=== PATIENT | male | born 1955 | race Caucasian/White ===

== ENCOUNTER 2018-08-24 13:55 | Day surgery (SDC) | payer BC ==
[2018-08-24] VITALS (10 sets, daily range): BP systolic 109–134; BP diastolic 64–79
[2018-08-24] MEDS ORDERED: normal saline 1000ml 1,000 ML IV SCH (14:15)
[2018-08-24] MEDS ORDERED: CARV-50 PO (14:18)
[2018-08-24] MEDS ORDERED: midazolam 2 mg/2 ml injection ONE (14:34)
[2018-08-24] MEDS ORDERED: LIDOcaine 1% (10mg/ml)w/preservative injection 20ml MDV ONE (14:34)
[2018-08-24] MEDS ORDERED: fentaNYL/PF 50MCG/1 ML 2ML syringe ONE (14:34)
[2018-08-24] MEDS ORDERED: iohexol 350 MG/ML 50ML vial IV ONE (14:34)
[2018-08-24] MEDS ORDERED: iohexol 350MG/ML 100ml bottle IV ONE (14:34)
[2018-08-24 14:40] LABS: BASOPHILS % (AUTO) 0.5 % (0-1); EOSINOPHILS # (AUTO) 0.1 X10'3 (0-0.9); EOSINOPHILS % (AUTO) 2.1 % (0-6); HEMATOCRIT 47.3 % (42.0-52.0); HEMOGLOBIN 15.9 g/dl (14.0-17.9); LYMPHOCYTES # (AUTO) 1.9 X10'3 (1.1-4.8); MEAN CORPUSCULAR HEMOGLOBIN 30.7 PG (27.0-31.0); MEAN CORPUSCULAR HGB CONC 33.7 % (33.0-36.5); MEAN CORPUSCULAR VOLUME 91.1 FL (78-98); MEAN PLATELET VOLUME 8.1 FL (7.4-10.4); MONOCYTES # (AUTO) 0.5 X10'3 (0-0.9); MONOCYTES % (AUTO) 8.9 % (2-12); NEUTROPHILS # (AUTO) 2.7 X10'3 (1.8-7.7); NEUTROPHILS % (AUTO) 52.5 % (42-75); PLATELET COUNT 252 X10'3 (140-440); RED BLOOD COUNT 5.19 X10'6 (4.70-6.10); RED CELL DISTRIBUTION WIDTH 12.7 % (11.5-14.5); WHITE BLOOD COUNT 5.2 X10'3 (4.5-11.0)
[2018-08-24] MEDS ORDERED: diphenhydrAMINE 25mg capsule PO ONE (14:40)
[2018-08-24 14:53] LABS: PROTHROMBIN TIME 10.4 SECONDS (9.0-12.0)
[2018-08-24 14:55] LABS: ALBUMIN 4.1 G/DL (3.4-5.0); ANION GAP 9 (8-16); BLOOD UREA NITROGEN 9 MG/DL (7-18); BUN/CREATININE RATIO 9.6 (5.4-32.0); CALCIUM 8.9 MG/DL (8.5-10.1); CHLORIDE 105 MMOL/L (99-107); CREATININE 0.94 MG/DL (0.60-1.10); GLUCOSE 80 MG/DL (70-104); MAGNESIUM 1.9 MG/DL (1.5-2.4); POTASSIUM 3.8 MMOL/L (3.5-5.1); SODIUM 142 MMOL/L (135-145); TOTAL CARBON DIOXIDE 28.3 MMOL/L (24-32); eGFR 81 ML/MIN
[2018-08-24] MEDS ORDERED: sod bicarbonate 150mEq in D5W 1,150 ML IV ONE (15:55)
[2018-08-24 17:12] LABS: ALBUMIN 3.3 G/DL (3.4-5.0); ANION GAP 4 (8-16); BLOOD UREA NITROGEN 10 MG/DL (7-18); BUN/CREATININE RATIO 11.4 (5.4-32.0); CALCIUM 8.3 MG/DL (8.5-10.1); CHLORIDE 106 MMOL/L (99-107); CHOL/HDL RATIO 2.3 (0.00-4.99); CHOLESTEROL 131 MG/DL (0-200); CREATININE 0.88 MG/DL (0.60-1.10); GLUCOSE 103 MG/DL (70-104); HDL CHOLESTEROL 57 MG/DL (35-60); LDL CHOLESTEROL 72 MG/DL (50-100); POTASSIUM 3.7 MMOL/L (3.5-5.1); SODIUM 141 MMOL/L (135-145); TOTAL CARBON DIOXIDE 30.9 MMOL/L (24-32); TRIGLYCERIDES 38 MG/DL (20-135); eGFR 87 ML/MIN
[2018-08-24] MEDS ORDERED: carVEDilol 12.5mg tablet PO SCH (20:00)
== END 2018-08-24 19:00 | disposition home or self-care (01) ==
LOC: SSTAY O 13:55 → PCU 3S 16:33 → SSTAY O 19:00
PROVIDERS: ATTEND Internal Medicine Cardiovascular Disease
DX: I25.10 Atherosclerotic heart disease of native coronary artery without angina pectoris (principal); I44.2 Atrioventricular block, complete; Z95.0 Presence of cardiac pacemaker; Z96.642 Presence of left artificial hip joint; Z98.890 Other specified postprocedural states
CPT/HCPCS: 36415; 80048; 80061; 83735; 85025; 85610; 93005; 93458; A6257; C1760; C1769; C1894; J1644; J2001; J2250; J3010; J7030; Q9967; 99152; A4620

== ENCOUNTER 2018-10-12 07:53 | Day surgery (SDC) | payer BC ==
[~2018-10-12] VITALS: Ht 188 cm; Wt 99.8 kg
[2018-10-12] VITALS (9 sets, daily range): BP systolic 104–123; BP diastolic 55–77
[~2018-10-12 07:53] MED LIST: CARV-50 PO
[2018-10-12] MEDS: sod bicarbonate 150mEq in D5W 1,150 ML IV ONE (08:15)
[2018-10-12] MEDS ORDERED: LOSA25TA96 PO (08:23)
[2018-10-12] MEDS ORDERED: SILD50TA PO (08:23)
[2018-10-12] MEDS ORDERED: MULT-955 PO (08:23)
[2018-10-12] MEDS ORDERED: fentaNYL/PF 50MCG/1 ML 2ML syringe ONE (08:50)
[2018-10-12] MEDS ORDERED: lidocaine 1%/epinephrine 1:100,000 injection 50ml vial ONE (08:51)
[2018-10-12] MEDS ORDERED: vancomycin 1,000mg inj ONE (08:51)
[2018-10-12] MEDS ORDERED: midazolam 2 mg/2 ml injection ONE ×3 (08:51→10:07)
[2018-10-12] MEDS ORDERED: iohexol 350MG/ML 100ml bottle IV ONE (08:51)
[2018-10-12] MEDS ORDERED: cefazolin/dext.iso 2gm/50ml 50 ML IV ONE (08:55)
[2018-10-12 08:59] LABS: BASOPHILS % (AUTO) 0.4 % (0-1); EOSINOPHILS # (AUTO) 0.1 X10'3 (0-0.9); EOSINOPHILS % (AUTO) 2.8 % (0-6); HEMATOCRIT 42.3 % (42.0-52.0); HEMOGLOBIN 14.2 g/dl (14.0-17.9); LYMPHOCYTES # (AUTO) 1.4 X10'3 (1.1-4.8); LYMPHOCYTES % (AUTO) 35.5 % (21-51); MEAN CORPUSCULAR HEMOGLOBIN 30.6 PG (27.0-31.0); MEAN CORPUSCULAR HGB CONC 33.7 % (33.0-36.5); MEAN CORPUSCULAR VOLUME 90.9 FL (78-98); MONOCYTES # (AUTO) 0.4 X10'3 (0-0.9); MONOCYTES % (AUTO) 9.7 % (2-12); NEUTROPHILS % (AUTO) 51.6 % (42-75); PLATELET COUNT 257 X10'3 (140-440); RED BLOOD COUNT 4.65 X10'6 (4.70-6.10); RED CELL DISTRIBUTION WIDTH 13.4 % (11.5-14.5); WHITE BLOOD COUNT 3.8 X10'3 (4.5-11.0)
[2018-10-12] MEDS: diphenhydrAMINE 25mg capsule PO PRN (09:01)
[2018-10-12] MEDS: normal saline 1000ml 1,000 ML IV SCH (09:01)
[2018-10-12 09:12] LABS: ALBUMIN 3.3 G/DL (3.4-5.0); ANION GAP 6 (8-16); BLOOD UREA NITROGEN 10 MG/DL (7-18); BUN/CREATININE RATIO 10.2 (5.4-32.0); CALCIUM 8.8 MG/DL (8.5-10.1); CHLORIDE 107 MMOL/L (99-107); CREATININE 0.98 MG/DL (0.60-1.10); GLUCOSE 99 MG/DL (70-104); POTASSIUM 4.5 MMOL/L (3.5-5.1); SODIUM 142 MMOL/L (135-145); TOTAL CARBON DIOXIDE 29.1 MMOL/L (24-32); eGFR 77 ML/MIN
[2018-10-12 09:19] LABS: INR 1.1 INR; PROTHROMBIN TIME 10.7 SECONDS (9.0-12.0)
== END 2018-10-12 13:20 | disposition home or self-care (01) ==
LOC: SSTAY O 07:53
PROVIDERS: ATTEND Internal Medicine Cardiovascular Disease
DX: I44.2 Atrioventricular block, complete (principal); I42.8 Other cardiomyopathies; I49.01 Ventricular fibrillation; Z95.0 Presence of cardiac pacemaker; Z96.642 Presence of left artificial hip joint; Z91.018 Allergy to other foods; Z72.89 Other problems related to lifestyle; Z98.890 Other specified postprocedural states; Z79.899 Other long term (current) drug therapy; Z82.49 Family history of ischemic heart disease and other diseases of the circulatory system; Z83.3 Family history of diabetes mellitus; Z83.6 Family history of other diseases of the respiratory system
CPT/HCPCS: 33225; 33233; 33235; 33249; 36415; 71046; 80048; 83735; 85025; 85610; 93005; 93641; 99152; 99153; C1777; C1882; C1887; C1900; J0690; J2250; J3010; J3370; J3490; J7030; Q0163; Q9967; 33224; 33264; A4565; A4620; C1769; C1894

== ENCOUNTER 2022-10-21 06:42 | Day surgery (SDC) | payer MEDICARE, OTHER ==
[~2022-10-21] VITALS: Ht 188 cm; Wt 104.6 kg
[2022-10-21] VITALS (8 sets, daily range): BP systolic 105–136; BP diastolic 71–88
[~2022-10-21 06:42] MED LIST changes: +LOSA25TA96 PO; +MULT-955 PO; +SILD50TA PO
[2022-10-21] MEDS ORDERED: vancomycin 1,500 MG in NS 300ml IV soln IV ONE (07:15)
[2022-10-21] MEDS ORDERED: ceFAZolin inj. 2,000 MG in dextrose 5%-water 100 ML IV ONE (07:15)
[2022-10-21 07:34] LABS: BASOPHILS % (AUTO) 0.9 % (0-1); EOSINOPHILS # (AUTO) 0.2 X10'3 (0-0.9); EOSINOPHILS % (AUTO) 5.1 % (0-6); HEMATOCRIT 45.6 % (42.0-52.0); HEMOGLOBIN 15.2 g/dl (14.0-17.9); LYMPHOCYTES # (AUTO) 1.5 X10'3 (1.1-4.8); LYMPHOCYTES % (AUTO) 34.4 % (21-51); MEAN CORPUSCULAR HEMOGLOBIN 30.6 PG (27.0-31.0); MEAN CORPUSCULAR HGB CONC 33.3 g/dL (33.0-36.5); MEAN CORPUSCULAR VOLUME 91.8 FL (78-98); MEAN PLATELET VOLUME 7.3 FL (7.4-10.4); MONOCYTES # (AUTO) 0.5 X10'3 (0-0.9); MONOCYTES % (AUTO) 10.9 % (2-12); NEUTROPHILS # (AUTO) 2.1 X10'3 (1.8-7.7); NEUTROPHILS % (AUTO) 48.7 % (42-75); PLATELET COUNT 273 X10'3 (140-440); RED BLOOD COUNT 4.96 X10'6 (4.70-6.10); RED CELL DISTRIBUTION WIDTH 13.7 % (11.5-14.5); WHITE BLOOD COUNT 4.2 X10'3 (4.5-11.0)
[2022-10-21] MEDS ORDERED: CARV25TA2 PO (07:41)
[2022-10-21] MEDS ORDERED: PANT40TA54 PO (07:41)
[2022-10-21] MEDS ORDERED: midazolam 1 mg/ML 2ml injection ONE ×3 (08:15→09:56)
[2022-10-21] MEDS ORDERED: fentaNYL/PF 50MCG/1 ML 2ML syringe ONE ×2 (08:15→09:57)
[2022-10-21] MEDS ORDERED: vancomycin 1,000mg inj ONE (08:15)
[2022-10-21] MEDS ORDERED: iohexol 300mg/ml 100ml inj. ONE (08:54)
[2022-10-21] MEDS ORDERED: proCHLORperazine 10 MG/2 ml inj ONE (09:41)
[2022-10-21 09:57] LABS: ALBUMIN 3.6 G/DL (3.4-5.0); ANION GAP 11 (8-16); BLOOD UREA NITROGEN 10 MG/DL (7-18); BUN/CREATININE RATIO 9.4 (5.4-32.0); CALCIUM 8.9 MG/DL (8.5-10.1); CHLORIDE 106 MMOL/L (99-107); CREATININE 1.06 MG/DL (0.60-1.10); GLUCOSE 97 MG/DL (70-104); POTASSIUM 3.9 MMOL/L (3.5-5.1); SODIUM 141 MMOL/L (135-145); TOTAL CARBON DIOXIDE 24.5 MMOL/L (24-32); eGFR 70 ML/MIN
[2022-10-21] MEDS ORDERED: LIDOCAINE 2% (20mg/ml) w/EPINEPHRINE 1:200,000-PF 10 ML inj. SQ ONE (11:20)
[2022-10-21] MEDS ORDERED: LIDOCAINE 2%/EPI 1:100,000 inj. Multi-dose 20 ML VIAL IJ ONE (11:25)
[2022-10-21] MEDS ORDERED: HYDROcodone/acetaminophen 10/325mg tab PO PRN (12:10)
[2022-10-21] MEDS ORDERED: HYDROcodone/acetaminophen 5mg/325mg tablet PO PRN (12:10)
[2022-10-21] MEDS ORDERED: LORazepam 1 MG tablet PO PRN (12:10)
== END 2022-10-21 13:30 | disposition home or self-care (01) ==
LOC: SSTAY O 06:42
PROVIDERS: ATTEND Internal Medicine Cardiovascular Disease
DX: Z45.02 Encounter for adjustment and management of automatic implantable cardiac defibrillator (principal); I44.2 Atrioventricular block, complete; I42.0 Dilated cardiomyopathy; K21.9 Gastro-esophageal reflux disease without esophagitis; Z79.899 Other long term (current) drug therapy; Z98.890 Other specified postprocedural states; Z72.89 Other problems related to lifestyle; Z96.642 Presence of left artificial hip joint
CPT/HCPCS: 33241; 33244; 33249; 36415; 71045; 80048; 83735; 85025; 85610; 93005; 99152; 99153; C1769; C1882; C1894; C1898; J0780; J2250; J3010; J3370; J7030; J7040; Q9967; 33216; 33264; A6258

== ENCOUNTER 2025-04-14 08:22 | Outpatient (CLI) | payer MEDICARE, OTHER ==
[~2025-04-14 08:22] MED LIST changes: -CARV-50 PO; +CARV25TA2 PO; +LOSA-415 PO; -LOSA25TA96 PO; +PANT40TA54 PO
--- NOTE | 2025-04-14 11:26 | RADIOLOGY REPORT ---
CLINICAL INDICATION: PAIN IN RIGHT SHOULDER TECHNIQUE: Noncontrast CT of the right shoulder was performed. Sagittal and coronal reformatted image s are provided. COMPARISON: None CT Dose: CTDI volume is 25.0 mGy. Dose-length product is 638 mGy*cm FINDINGS: No fracture or dislocation. The glenohumeral joint space is maintained. Small osteophytes noted jeri ng the medial aspect of the humeral head. The acromioclavicular joint space is narrowed. No abnormal alignment. Moderate glenohumeral joint effusion which decompresses into the superior subscapularis r ecess. No evidence of axillary lymphadenopathy. The right lung apex is clear. Partially imaged AICD. IMPRESSION: 1. Right glenohumeral and acromioclavicular joint arthrosis. 2. Right glenohumeral joint effusion. All CT scans at this medical facility are performed using dose modulation techniques as appropriate t o a performed exam including the following: Automated exposure control was utilized; adjustment of th e MA and/or KV according to patient size; and use of iterative reconstruction technique.
== END 2025-04-14 23:59 | disposition home or self-care (01) ==
LOC: RAD 08:22
PROVIDERS: ATTEND Physician Assistant Surgical
DX: M19.011 Primary osteoarthritis, right shoulder (principal); M25.511 Pain in right shoulder; M25.411 Effusion, right shoulder
CPT/HCPCS: 73200

== ENCOUNTER 2025-05-30 06:06 | Outpatient (CLI) | payer MEDICARE, OTHER ==
[2025-05-30] MEDS ORDERED: iohexol 300 MG/1 ML 50ml polymer ONE (06:32)
[2025-05-30] MEDS ORDERED: LIDOcaine 1%/PF 5ML 10 MG/ML VIAL ONE (06:32)
--- NOTE | 2025-05-30 08:24 | RADIOLOGY REPORT ---
C-ARM FLUOROSCOPY: PROCEDURE: Right shoulder injection for CT FLUOROSCOPY TIME: 0.1 DAP: 1 mgy FINDINGS: Spot intraoperative C arm radiographs demonstrating right shoulder injection for CT arthrogram. IMPRESSION: Please refer to surgical report for detailed findings.
--- NOTE | 2025-05-30 12:12 | RADIOLOGY REPORT ---
CLINICAL INDICATION: CT RT SHOULDER ARTHROGRAM TECHNIQUE: CT arthrogram of the right shoulder was performed. Please see separate procedural report. Coronal and sagittal reformatted images are provided. COMPARISON: CT CT UPPER EXTREM(SHOULDER/ARM) on DOS: 04/14/25 CT Dose: CTDI volume is 28.9 mGy. Dose-length product is 686.2 mGy*cm FINDINGS: No fracture or dislocation. There is good distention of the glenohumeral joint with iodinated contras t. There is contrast filling a full-thickness defect in the supraspinatus tendon at the anterior jakob tprint with the defect measuring 1.2 cm. Fluid decompresses into the subacromial subdeltoid bursa fro m the well distended glenohumeral joint. The glenohumeral alignment is maintained and the joint space is preserved. There are small subchondral cysts on both sides of the joint. The acromioclavicular joint space is maintained. Regional soft tissues are grossly unremarkable. IMPRESSION: 1. Focal full-thickness supraspinatus tendon tear of the anterior footprint tendon defect measuring 1 .2 cm. 2. Mild degenerative changes in the glenohumeral and acromioclavicular joint. All CT scans at this medical facility are performed using dose modulation techniques as appropriate t o a performed exam including the following: Automated exposure control was utilized; adjustment of th e MA and/or KV according to patient size; and use of iterative reconstruction technique.
[2025-05-30] MEDS ORDERED: midazolam 1 mg/ML 2ml injection ONE (13:48)
== END 2025-05-30 23:59 | disposition home or self-care (01) ==
LOC: RAD 06:06
PROVIDERS: ATTEND Orthopaedic Surgery
DX: M75.121 Complete rotator cuff tear or rupture of right shoulder, not specified as traumatic (principal); M19.011 Primary osteoarthritis, right shoulder; Z79.82 Long term (current) use of aspirin; Z79.899 Other long term (current) drug therapy; Z98.890 Other specified postprocedural states
CPT/HCPCS: 23350; 73201; 77002; J2250; J3490; Q9967